=== PATIENT | male | born 1995 | race Two or more races ===

== ENCOUNTER 2017-10-08 16:58 | Emergency (ER) | payer MEDICAID ==
[~2017-10-08] VITALS: Ht 182.9 cm; Wt 131.5 kg
[2017-10-08 17:00] VITALS: BP 148/83
[2017-10-08] MEDS ORDERED: Fluorescein Strips RIGHT EYE ONE (17:15)
[2017-10-08] MEDS ORDERED: Tetracaine 0.5% Opth 4ml Soln RIGHT EYE ONE (17:15)
--- NOTE | 2017-10-08 18:18 | Emergency Room Report ---
History of Present Illness General Chief Complaint: Eye Problems Source: Patient Present Illness HPI 22-year-old male presents to the emergency department complaining of progressive swelling/deformity with 8/10 in severity right eye pain and blurry vision over the course of 3 days. Patient states that prior to his symptoms and was told that he was rubbing his eye excessively. He states that he does not believe anything got into his eye he states that he wears glasses however he lost some long time ago he reports history of nearsightedness. He does not know when his last tetanus vaccination was he denies contact lens use. Reports increased lacrimation. Denies discharge, redness, loss of vision, floaters, flashing lights or photophobia. Denies recent rashes. Denies weakness, dizziness or sudden onset of SANTANA. pt denies hx of SANTANA's Allergies: Coded Allergies: No Known Allergies (Unverified , 10/08/17) Patient History Past Medical History: see triage record Past Surgical History: none Pertinent Family History: none Reviewed Nursing Documentation: PMH: Agreed; PSxH: Agreed Nursing Documentation-PMH Past Medical History: No Stated History Review of Systems All Other Systems: negative except mentioned in HPI Physical Exam Vital Signs Date Time Temp Pulse Resp B/P (MAP) Pulse Ox O2 Delivery O2 Flow Rate FiO2 10/08/17 17:00 97.6 96 18 148/83 98 Room Air 97.6 Sp02 EP Interpretation: reviewed, normal General Appearance: no apparent distress, alert, GCS 15, non-toxic Head: normocephalic, atraumatic Eyes: right eye fluoroscene uptake - none; bilateral eye PERRL, bilateral eye EOMI, bilateral eye visual acuity - Right eye 20/200, left 20/30, bilateral eye other - Right IOP: 20 average, and left is 19 ENT: hearing grossly normal, normal voice Neck: full range of motion Respiratory: chest non-tender, lungs clear, normal breath sounds, speaking full sentences Cardiovascular #1: regular rate, rhythm, no edema Musculoskeletal: back normal, gait/station normal, normal range of motion, non- tender Neurologic: alert, oriented x3, responsive, motor strength/tone normal, sensory intact, normal gait, speech normal, grossly normal Psychiatric: judgement/insight normal Skin: normal color, no rash, warm/dry, well hydrated Lymphatic: no adenopathy Medical Decision Making PA Attestation Dr. Adkins is my supervising Physician whom patient management has been discussed with. Diagnostic Impression: Primary Impression: Keratoconus, acute hydrops Qualified Codes: H18.621 - Keratoconus, unstable, right eye ER Course 22-year-old male presents to the emergency department complaining of progressive swelling/deformity with 8/10 in severity right eye pain and blurry vision over the course of 3 days. Patient states that prior to his symptoms and was told that he was rubbing his eye excessively. He states that he does not believe anything got into his eye he states that he wears glasses however he lost some long time ago he reports history of nearsightedness. He does not know when his last tetanus vaccination was he denies contact lens use. Reports increased lacrimation. Denies discharge, redness, loss of vision, floaters, flashing lights or photophobia. Denies recent rashes. Denies weakness, dizziness or sudden onset of SANTANA. pt denies hx of SANATNA's - Pt denies Contact lens use. Ddx considered but are not limited to: corneal abrasion, acute glaucoma, globe rupture, FB, Corneal Ulcer, conjunctivitis. Iridis, Vital signs: are WNL, pt. is afebrile H&PE are most consistent with: corneal abnormality will assess for laceration, foreign body or increased IOP. no neurological signs noted on PE. ORDERS: -Tetracaine and Fluorescein Stain of the Right eye: No uptake noted. - Negative Mariaa sign. Pt. had some mild positive relief of pain with tetracaine drops. there was negative evidence of Fb, deep ulcer, or rupture. ED INTERVENTIONS: -Tylenol PO --Consulted Dr. Polk: suspects corneal hydrops secondary to keratoconus, recommends contacting Dr. Francisco Javier Campuzano as he is corneal specialist. Dr. Polk said he will see the pt. in his office tomorrow if we are unable to get a hold of Dr. Campuzano. --Unable to contact dr. Campuzano. pt to follow up with Dr. Martinez tomorrow am. DISCHARGE: At this time pt. is stable for d/c to home for close outpatient ophthalmology follow up. Will provide printed patient care instructions, and any necessary prescriptions. Care plan and follow up instructions have been discussed with the patient prior to discharge. . Last Vital Signs Date Time Temp Pulse Resp B/P (MAP) Pulse Ox O2 Delivery O2 Flow Rate FiO2 10/08/17 17:00 97.6 96 18 148/83 98 Room Air 97.5 Disposition: HOME, SELF-CARE Condition: Stable Physician Consult: Dr. Martinez (ophthalmology) Scripts Acetaminophen* (TYLENOL EXTRA STRENGTH*) 500 Mg Tablet 500 MG ORAL Q6H, #20 TAB 0 Refills Prov: Cherise Villegas 10/08/17 Ciprofloxacin Hcl (CIPROFLOXACIN HCL) 2.5 Ml Drops 1 ML OP QID for 7 Days, #2.5 ML Prov: Cherise Villegas 10/08/17 Referrals: NOT CHOSEN IPA/MD,REFERRING (PCP) Patient Instructions: Medical Screening Exam Additional Instructions: Take medications as directed. Follow up with [facility] contact information has been provided. Return sooner to ED if new symptoms occur, or current symptoms become worse. - Please note that this Emergency Department Report was dictated using [employer] teacher technology software, occasionally this can lead to erroneous entry secondary to interpretation by the dictation equipment. Cherise Villegas Oct 08, 2017 18:17
[2017-10-08] MEDS ORDERED: TYLENOL EXTRA500 MG ORAL (19:20)
[2017-10-08] MEDS ORDERED: CIPROFLOXACIN2.5 ML OP (19:20)
[2017-10-08] MEDS ORDERED: Tetanus/Diptheria/Pertussis Vaccine 0.5ml Syr IM ONE (19:30)
[2017-10-08 19:48] VITALS: BP 148/83
== END 2017-10-08 19:48 | disposition home or self-care (01) ==
LOC: EMR 17:35
DX: H18.621 Keratoconus, unstable, right eye (principal); Z23 Encounter for immunization
CPT/HCPCS: 90471; 90715; 96372; 99284